=== PATIENT | male | born 1945 | race Caucasian/White ===

== ENCOUNTER 2024-08-26 11:36 | Emergency (ER) | payer MEDICARE, OTHER, SELFPAY ==
[2024-08-26 11:40] VITALS: BP 146/86
[2024-08-26 12:09] LABS: % Basophils 0.8 % (0-2); % Eosinophils 3.2 % (0-6); % Immature Granulocytes 0.2 % (0-0.5); % Lymphocytes 18.8 % (20.5-51.1); % Monocytes 7.7 % (1.7-9.3); % Neutrophils 69.3 % (42.2-75.2); Absolute Eosinophils 0.2 10^3/uL (0-0.7); Absolute Monocytes 0.4 10^3/uL (0.1-0.6); Absolute Neutrophils 3.7 10^3/uL (1.4-6.5); Hematocrit 43.7 % (39.0-52.0); Hemoglobin 14.3 g/dL (13.0-18.0); Mean Corp Hgb Conc. 32.7 g/dL (33.0-37.0); Mean Corpuscular Hgb 30.5 pg (27.0-31.0); Mean Corpuscular Volume 93.2 fL (80.0-94.0); Mean Platelet Volume 9.4 fL (7.4-10.4); Nucleated Red Blood Cells % 0 % (-); Platelet Count 209 10^3/uL (130-400); Red Blood Cell Count 4.69 10^6/uL (4.70-6.10); Red Cell Dist. Width 13.3 % (11.5-14.5); White Blood Cell Count 5.3 10^3/uL (4.8-10.8)
[2024-08-26 12:21] LABS: ALT (SGPT) < 10 U/L (0-50); AST (SGOT) 27 U/L (17-59); Albumin 4.2 g/dl (3.5-5.0); Alkaline Phosphatase 67 U/L (38-126); Blood Urea Nitrogen 25 mg/dl (9-20); Calcium 9.3 mg/dl (8.4-10.2); Carbon Dioxide 35 mmol/L (22-30); Chloride 100 mmol/L (98-107); Glucose 94 mg/dl (70-99); Potassium 4.2 mmol/L (3.5-5.1); Sodium 140 mmol/L (135-145); Total Bilirubin 0.7 mg/dl (0.2-1.3); Total Protein 7.1 g/dl (6.3-8.2); eGFR > 60.00
--- NOTE | 2024-08-26 12:58 | ED.GENMED ---
History of Present Illness
<Fern Bonner PA-C - Last Filed: 08/26/24 21:37>
General
Chief Complaint: Swelling
Source: patient
Exam Limitations: none
Time Seen by Provider: 08/26/24 12:54
Nursing documentation reviewed up to this point in time: agreed with
History of Present Illness
History of Present Illness:
This is a 79-year-old male with a past medical history of hypertension, Parkinson disease, who presents emergency department today with concerns of bilateral pedal edema for the past month. He reports that the past 2 weeks, the lower feet have
become red as well. He states that he has peripheral neuropathy and does not have strong sensation to his feet to begin with but denies foot pain, difficulty walking. He called his primary care physician today who sent him to the emergency
department out of concern for potential cellulitis vs blood clots. reports that patient sedentary at baseline. He denies any trauma to the feet, any recent falls. He denies any chest pain or shortness of breath.
Review of Systems
<Fern Bonner PA-C - Last Filed: 08/26/24 21:37>
Review of Systems
All Other Systems: ROS reviewed and negative except as documented in HPI and ROS
Phy Exam
<Fern Bonner PA-C - Last Filed: 08/26/24 21:37>
Physical Exam
Physical Exam:
General: Patient is well appearing and in no acute distress; non-toxic
Skin: Warm and dry, no rashes or lesions
Head: Normocephalic, atraumatic
Eyes: Sclera non-icteric. EOMs intact.
Cardiac: Regular rate and rhythm, no murmurs
Peripheral Vascular: 2+ DP and PT pulses. Bilateral pedal edema noted.
Pulm: Normal respiratory effort
Musculoskeletal: No tenderness to palpation of the bilateral lower extremeties.
Neuro: CN II-XII intact, no focal neurologic deficits.
Psychiatric: Appropriate mood and affect.
Scores
<Fern Bonner PA-C - Last Filed: 08/26/24 21:37>
Heart Failure Risk
Heart Failure Risk Score: Not Applicable
Course
<Fern Bonner PA-C - Last Filed: 08/26/24 21:37>
Orders/Labs/Results
Orders:
Orders
08/26/24 11:47
CMP [Comprehensive Metabolic Panel] Urgent
Complete Blood Count/With Diff Urgent
08/26/24 13:37
Peripheral Venous Lwr Ext Bilat US [US Periph Venous LOWER Ext Yohannes] Urgent
Comment:
Reason For Exam: b/l swelling
Abnormal Lab Results
08/26/24
11:47
RBC 4.69 L 10^6/uL
(4.70-6.10)
MCHC 32.7 L g/dL
(33.0-37.0)
Absolute Lymphs (auto) 1.0 L 10^3/uL
(1.2-3.4)
Lymphocytes % 18.8 L %
(20.5-51.1)
Carbon Dioxide 35 H mmol/L
(22-30)
BUN 25 H mg/dl
(9-20)
08/26/24 11:47
08/26/24 11:47
Vital Signs
Initial and Last Documented VS:
Initial Vital Signs
Temp Pulse Resp BP Pulse Ox
97.8 F 63 20 146/86 97
08/26/24 11:40 08/26/24 11:40 08/26/24 11:40 08/26/24 11:40 08/26/24 11:40
Last Documented Vital Signs
Temp Pulse Resp BP Pulse Ox
97.8 F 59 16 152/85 96
08/26/24 11:40 08/26/24 14:55 08/26/24 13:07 08/26/24 15:00 08/26/24 15:00
<Leander Suarez, DO - Last Filed: 08/26/24 13:39>
Orders/Labs/Results
Orders:
Orders
08/26/24 11:47
CMP [Comprehensive Metabolic Panel] Urgent
Complete Blood Count/With Diff Urgent
08/26/24 13:37
Peripheral Venous Lwr Ext Bilat US [US Periph Venous LOWER Ext Yohannes] Urgent
Comment:
Reason For Exam: b/l swelling
Abnormal Lab Results
08/26/24
11:47
RBC 4.69 L 10^6/uL
(4.70-6.10)
MCHC 32.7 L g/dL
(33.0-37.0)
Absolute Lymphs (auto) 1.0 L 10^3/uL
(1.2-3.4)
Lymphocytes % 18.8 L %
(20.5-51.1)
Carbon Dioxide 35 H mmol/L
(22-30)
BUN 25 H mg/dl
(9-20)
08/26/24 11:47
08/26/24 11:47
Vital Signs
Initial and Last Documented VS:
Initial Vital Signs
Temp Pulse Resp BP Pulse Ox
97.8 F 63 20 146/86 97
08/26/24 11:40 08/26/24 11:40 08/26/24 11:40 08/26/24 11:40 08/26/24 11:40
Last Documented Vital Signs
Temp Pulse Resp BP Pulse Ox
97.8 F 59 16 152/85 96
08/26/24 11:40 08/26/24 14:55 08/26/24 13:07 08/26/24 15:00 08/26/24 15:00
<Fern Bonner PA-C - Last Filed: 08/26/24 21:37>
MDM/Problems Addressed
Differential Diagnosis Includes:
Venous stasis, dependent edema, DVT, cellulitis
MDM/Problems Addressed:
This is a 79-year-old male with a past medical history of hypertension, Parkinson disease, who presents emergency department today with concerns of bilateral pedal edema for the past month. He started to get some mild redness and discoloration
recently. He sent here from his PCP for concern for possible cellulitis. notes sedentary lifestyle so bilateral ultrasound was obtained which was negative. On physical exam there is some mild erythema but no serious concern for bacterial
cellulitis. Will start patient on Keflex to cover for any infection starting. Suspect venous insufficiency/dependent edema. Patient stable for discharge.
<Fern Bonner PA-C - Last Filed: 08/26/24 21:37>
*Pulse Oximetry
Patient hypoxic: no
*Critical Care Note
Total Time (30-74mins, 75-104mins- exclusive of procedures): Not Applicable
Data Reviewed
Review of Other/Old Records Reveals: Records (Reviewed [facility], no previous ER physician documentation to review) and Discharge Summary (No discharge summaries in [facility] to review)
Source: patient and records
ED Attending Note
<Fern Bonner PA-C - Last Filed: 08/26/24 21:37>
-
Portions of this chart may have been created with voice recognition software.� Occasional wrong word or��sound alike� substitutions may have occurred due to the inherent limitations of voice recognition software.
<Leander Suarez DO - Last Filed: 08/26/24 13:39>
ED Attending Note
Patient seen and examined by attending physician: Yes
I performed the substantive portion of visit, reviewed & personally made and approve the management plan that is documented in note by myself or MIRLANDE.: Yes
ED Attending Note:
I evaluated the patient at bedside. Suspect venous stasis as opposed to cellulitis however the patient is sedentary�will obtain ultrasound imaging. Family wishes to try antibiotics and PMD did suggest trying antibiotics as well.
Discharge Plan
Departure
Patient Disposition: Home (Routine Discharge)
Date of Disposition: 08/26/24
Time of Disposition: 15:22
Patient with high blood pressure during this ER visit?: Yes
Condition: Good
Discharge Problem:
Pedal edema, Redness of skin
Instructions: Dependent Edema (DC), BLOOD PRESSURE
Prescriptions:
New
cephalexin 500 mg capsule
500 mg PO QID 5 Days Qty: 20 0RF
Referrals:
Mikie Alaniz, DO [Family Provider] -
Activity Restrictions/Additional Instructions:
Keflex has been sent to your pharmacy. You can take one tablet four times daily for 5 days.
PLEASE RETURN TO THE ER SHOULD YOU DEVELOP PAIN WITH AMBULATION, CHEST PAIN, SHORTNESS OF BREATH, PALLOR, FEVERS OR CHILLS, NAUSEA OR VOMITING, OR ANY OTHER SIGNS OR SYMPTOMS WORRISOME TO YOU.
Interventions
Interventions:
*Risk Screen - Suicide Last Done: 08/26/24 11:43
*General Assessment Last Done: 08/26/24 12:57
*Neglect/Abuse Screening Last Done: 08/26/24 12:57
ED- Fall Risk Assessment Last Done: 08/26/24 15:36
*ED COVID-19 Vaccine History Last Done: 08/26/24 12:57
*Nursing Disposition Last Done: 08/26/24 15:36
ED- Cardiac Assessment Last Done: 08/26/24 12:57
ED- Pulmonary Assessment Last Done: 08/26/24 12:57
ED-Skin Assessment Last Done: 08/26/24 12:57
Discharge Date and Time
Discharge Date/Time: 08/26/24 15:41
Print Language: MALAY
[2024-08-26 14:48] VITALS: BP 153/87
[2024-08-26 15:00] VITALS: BP 152/85
== END 2024-08-26 15:41 | disposition home or self-care (01) ==
LOC: EMR 11:36
PROVIDERS: Emergency Medicine; EMERGENCY PHYSICIAN Emergency Medicine; FAMILY PHYSICIAN Family Medicine
DX: R60.0 Localized edema (principal); L53.9 Erythematous condition, unspecified; G20.A1 Parkinson's disease without dyskinesia, without mention of fluctuations; I10 Essential (primary) hypertension; G62.9 Polyneuropathy, unspecified
CPT/HCPCS: 99283; 80053; 85025; 93970